=== PATIENT | male | born 1965 | race Caucasian/White ===

== ENCOUNTER 2019-11-22 05:17 | Emergency (ER) | payer OTHER ==
[~2019-11-22] VITALS: Ht 177.8 cm; Wt 100.0 kg
[~2019-11-22 05:17] MED LIST: ASPIRIN E.C. 8181 MG PO; CRESTOR20 MG PO; DEPO-TESTOS200 MG/M1 IM; DIOVAN/HCT 12.51 TAB PO; TOPROL XL 25MG25 MG PO
[2019-11-22 05:23] VITALS: TEMP 98.2
[2019-11-22] MEDS ORDERED: PREDNISONE20 MG PO ×2 (05:30→06:53)
[2019-11-22 07:00] VITALS: BP 129/90; PULSE 69
== END 2019-11-22 07:00 | disposition home or self-care (01) ==
LOC: COL.ER 05:17
DX: T78.3XXA Angioneurotic edema, initial encounter (principal); I25.10 Atherosclerotic heart disease of native coronary artery without angina pectoris; Z79.82 Long term (current) use of aspirin
CPT/HCPCS: J1200; J2930